=== PATIENT | male | born 1955 | race Caucasian/White ===

== ENCOUNTER 2024-11-26 12:12 | Emergency (ER) | payer OTHER, SELFPAY ==
--- NOTE | ~2024-11-26 | CT_ITS ---
EXAMINATION: CT brain wo con DATE: 11/26/2024 12:20 INDICATION: Altered mental status. Head injury. TECHNIQUE: Computed tomography (CT) of the head was performed without intravenous contrast. The dose- length product was 605.33 mGy-cm. Automated exposure control and iterative reconstruction technique were employed. COMPARISON: CT dated 11/18/2009 FINDINGS: large left hemispheric subdural hemorrhage measuring 18 mm transversely with hematocrit lev el. There is midline shift to the right measuring 12 mm with effacement of the left lateral ventricle . Basilar cisterns are patent. No depressed skull fractures. Paranasal sinuses and mastoids are pneum atized. IMPRESSION: 1. Large left hemispheric subdural hemorrhage with hematocrit level measuring 18 mm transversely with midline shift to the right measuring [address] Ernst Kay discussed with Dr. Yennifer Blanco MD at 11/26/2024 12:28 CDT. Reviewed, dictated and finalized at location A. IMPRESSION: 1. Large left hemispheric subdural hemorrhage with hematocrit level measuring 1 8 mm transversely with midline shift to the right measuring [address] Ernst Kay discussed with Dr. Yennifer Blanco MD at 11/26/2024 12:28 CDT.
--- NOTE | ~2024-11-26 | CT_ITS ---
EXAMINATION: CT cervical spine wo con DATE: 11/26/2024 12:22 INDICATION: Altered mental status status post fall. TECHNIQUE: Computed tomography (CT) of the cervical spine was performed without intravenous contrast. The dose-length product was 413 mGy-cm. Automated exposure control and iterative reconstruction tech nique were employed. COMPARISON: None FINDINGS: Large bulky are osteophytes are present at all cervical spine levels. There is near complet e obliteration of disc space at C5-6 and C6-7. There are prominent dorsal osteophytes at C3-4 and C5- 6 with bilateral neural foraminal narrowing at C5-6. There is advanced multilevel facet hypertrophy. Odontoid process is normal. Lung apices are normal. No paraspinal soft tissue abnormality.. IMPRESSION: 1. No acute abnormality of the cervical spine. 2: Severe cervical spondylosis with bulky marginal osteophytes at almost all cervical levels. Reviewed, dictated and finalized at location A. IMPRESSION: 1. No acute abnormality of the cervical spine. 2: Severe cervical spondylosis with bulky marginal osteophytes at almost all ce rvical levels.
--- NOTE | ~2024-11-26 | XR_ITS ---
CHEST RADIOGRAPH CLINICAL HISTORY: AMS . COMPARISON: 08/22/2016 TECHNIQUE: Single portable view of the chest. FINDINGS Endotracheal tube is identified with its tip projecting approximately 6 cm above the base of the mingo na for which advancement of approximately 3 cm is recommended for optimal radiographic placement. Orogastric tube extends into the left upper quadrant, presumably within the stomach. The cardiomediastinal silhouette is enlarged, an interval change. Dense opacification with air bronchograms in the left upper lobe, also an interval change. The remainder of the lungs are clear IMPRESSION: Endotracheal tube tip projects 6 cm above the base of the damion for which advancement of approximate ly 3 cm is recommended for optimal radiographic placement. Orogastric tube in good position and ready for immediate use. Interval enlargement of the cardiomediastinal silhouette, when compared with previous examination per formed in 2017. Left upper lobe infiltrate is suspected, as detailed above. Reviewed, dictated and finalized at location A. IMPRESSION: Endotracheal tube tip projects 6 cm above the base of the damion for which adva ncement of approximately 3 cm is recommended for optimal radiographic placement . Orogastric tube in good position and ready for immediate use. Interval enlargement of the cardiomediastinal silhouette, when compared with pr evious examination performed in 2017. Left upper lobe infiltrate is suspected, as detailed above.
--- NOTE | 2024-11-26 12:13 | ECG_ITS ---
Test Date: 2024-11-26 12:33:13 Measurements Intervals [place] Rate: 98 P: 0 GA: 0 QRS: -31 QRSD: 97 T: 56 QT: 383 QTc: 491 Interpretive Statements ATRIAL FIBRILLATION LEFT AXIS DEVIATION [QRS AXIS < -30] MODERATE ST DEPRESSION [0.05+ mV ST DEPRESSION] No previous ECG available for comparison Electronically Signed On 11-27-2024 18:37:56 CDT by Cuong Fernandes M.D.
--- NOTE | 2024-11-26 12:27 | PC.NURSE ---
Ginny listed in chart called x 2 without answer. VM not set up - unable to leave a message. Cornelio listed in chart had a number that was no longer in service.
[2024-11-26 12:28] VITALS: BP 172/116; PULSE 83; RESP 20; O2SAT 94
--- NOTE | 2024-11-26 12:29 | ED.FALL ---
HPI - Fall General Chief Complaint: Suspected CVA Stated Complaint: AMS Time Seen by Provider: 11/26/24 12:30 Source: patient, family, EMS and RN notes reviewed Mode of arrival: EMS Limitations: altered mental status History of Present Illness HPI Narrative: This is a 69 year old male with history of hypertension who presents for evaluation of fall and altered mental status. Daughter states he fell 3 days ago but he stubborn he woke go to the doctor. Today she found him confused and on the floor. EMS reports he is normally oriented x4 and today he is only oriented to person and age. He reports headache but no other symptoms. He is not sure why he fell. MEdication were brought with him and he is taking plavix . Related Data Allergies Allergy/AdvReac Type Severity Reaction Status Date / Time No Known Allergies Allergy Verified 08/22/16 12:59 Review of Systems Neurologic: Reports headache(s) [facility] Past Medical History Medical History (Updated 11/26/24 @ 13:08 by Yennifer Blanco MD) Hypertension Social History Social History (Updated 11/26/24 @ 13:06 by Yennifer Blanco MD) Smoking status: Unknown if ever smoked Exam Const: General: alert and confusion Other: oriented to person and age HENMT: Head: normal to inspection Face and sinus: normal facial exam Mouth: Yes Normal oral and palatal mucosa present, Yes lip normal and Yes moist mucous membranes Throat: posterior oropharynx normal Eyes: Pupils: Equal, round and reactive pupils present EOM: EOMs intact bilaterally Neck: Other: in c collar Resp: Effort & Inspection: normal respiratory effort Auscultation: clear to auscultation bilaterally Cardio: Rate: regular rate Rhythm: regular rhythm Heart sounds: Murmur heart sound present GI: Inspection: distended GI Palp: Yes Soft to palpation, No Guarding due to palpation present (GI) and No Rigid due to palpation Auscultation: normal bowel sounds Neuro: General: moves all extremities and CN's II-XI intact bilaterally Extrem: General: edema Psych: Mental Status: mental status grossly normal Affect: normal affect Attitude: cooperative Course Course Emergency Course: Patient presented with AMS found to have large SDH. Patient hypertensive. He was intubate for airway protection. Heart rate increased and blood pressure increased to 195. Patient given labetolol 20 mg IV. Patient sent to [facility] ER by Guillermo Reevaluation(s) Reevaluation #1: Patient's daughter's just arrived. I discussed with them patient critical and he is being flown to [facility] for Neurosurgery due to large intracranial hemorrhage Date: 11/26/24 Time: 13:03 Consultations Consultation #1: I spoke with Dr. Echeverria with neurosurgery and she agrees patient needs to go to ER. Understands patient will be intubated and given Kcentra. I also spoke with Dr. Conde in ER and he accepts to ER. We discussed patient to be given Kcentra. Patient will be intubated for airway protection. They request blood pressure below 160 systolic Date: 11/26/24 Time: 12:43 Vital Signs Vital signs: Vital Signs Pulse Rate 83 11/26/24 12:28 Respiratory Rate 20 11/26/24 12:28 Blood Pressure 172/116 H 11/26/24 12:28 Pulse Oximetry 94 11/26/24 12:28 Oxygen Delivery Room Air 11/26/24 12:28 Pulse Rate 85 11/26/24 13:03 Respiratory Rate 15 11/26/24 13:03 Blood Pressure 129/92 H 11/26/24 13:03 Pulse Oximetry 100 11/26/24 13:03 Oxygen Delivery Room Air 11/26/24 12:28 Transfer Transfered to: [facility] Accepting physician: Dr. Conde Procedures Intubation Intubation #1: Intubation Date: 11/26/24 Intubation Time: 12:45 Time out performed: Yes sedative: Fentanyl (50 mcg) Mg Given: 20 paralytic: Rocuronium Mg Given: 50 Laryngoscope: fiber optic video scope Tube Size (cm): 7.5 Method of Intubation: orotracheal Number of Attempts: 1 Tube Secured Depth (cm): 26 Tube Secured Location: teeth Tube Placement Confirmation: visualized tube passing through cords, equal breath sounds bilaterally and confirmation by capnometry Patient Tolerated Procedure: well MDM - Fall Differential Diagnosis Differential diagnosis: Likely other (SDH, Epidural hematom. CVA, SAH) Medical Records Attestation: I reviewed the patient's medical records. Lab Data Attestation: I reviewed the patient's lab results. 11/26/24 12:35 11/26/24 12:35 Labs: Lab Results 11/26/24 Range/Units 12:35 WBC 13.8 H (4.5-10.0) K/mm3 RBC 4.85 (4.6-6.20) M/mm3 Hgb 13.3 L (14.0-18.0) g/dL Hct 41.8 L (42.0-52.0) % MCV 86.2 (80-100) fl MCH 27.4 (26-34) pg MCHC 31.8 L (32-36) g/dl RDW 14.8 H (11.5-14.5) % Plt Count 208 (150-375) k/mm3 MPV 8.6 (7.4-10.4) fl Immature Gran % (Auto) 0.4 (0-0.5) % Neut % (Auto) 83.9 H (45.5-73.1) % Lymph % (Auto) 8.5 L (18.3-44.2) % [place] % (Auto) 6.6 (2.6-8.5) % Eos % (Auto) 0.1 (0-4.4) % Baso % (Auto) 0.5 (0.2-1.2) % Lymph # (Auto) 1.18 (0.9-3.2) K/mm3 [place] # (Auto) 0.9 H (0.1-0.6) K/mm3 Eos # (Auto) 0.0 (0-0.3) K/mm3 Baso # (Auto) 0.1 (0.0-0.1) K/mm3 Abs Immat Gran (auto) 0.06 H (0.00-0.031) K/mm3 Absolute Neuts (auto) 11.6 H (1.3-6.7) K/mm3 Absolute Nucleated RBC 0.000 (0.0-0.012) K/mm3 Nucleated RBC % 0.0 (0.0-0.2) % PT 14.5 (11.1-14.7) Seconds INR 1.1 APTT 27.0 (22.3-36.8) Seconds Sodium 139 (137-145) mmol/L Potassium 3.1 L (3.4-5.0) mmol/L Chloride 106 (98-107) mmol/L Carbon Dioxide 25 (22-30) mmol/L Anion Gap 8 (4-12) mmol/L BUN 17 (9-20) mg/dL Creatinine 0.79 (0.7-1.3) mg/dL Estim Creat Clear Calc 94 ml/min Estimated GFR > 60 (59 - ) Glucose 96 (65-110) mg/dL Calcium 9.1 (8.4-10.2) mg/dL Magnesium 2.2 (1.6-2.3) mg/dL Total Bilirubin 2.0 H (0.2-1.3) mg/dL AST 54 (17-59) U/L ALT 35 (6-50) U/L Alkaline Phosphatase 98 (38-126) U/L Total Creatine Kinase 669 H (55-170) U/L Troponin I 0.015 (0.000-0.034) ng/mL Total Protein 7.6 (6.3-8.2) g/dL Albumin 4.1 (3.5-5.1) g/dL Imaging Data Radiologist's impression: Dr. Fuentes- Large left hemispheric SDH, 12 mm midline shift ITS Impressions Head CT 11/26/24 12:25 IMPRESSION: 1. Large left hemispheric subdural hemorrhage with hematocrit level measuring 18 mm transversely with midline shift to the right measuring [address] Ernst Kay discussed with Dr. Yennifer Blanco MD at 11/26/2024 12:[address] 11/26/24 12:31 IMPRESSION: 1. No acute abnormality of the cervical spine. 2: Severe cervical spondylosis with bulky marginal osteophytes at almost all cervical levels. Chest X-Ray 11/26/24 13:09 IMPRESSION: Endotracheal tube tip projects 6 cm above the base of the damion for which advancement of approximately 3 cm is recommended for optimal radiographic placement. Orogastric tube in good position and ready for immediate use. Interval enlargement of the cardiomediastinal silhouette, when compared with previous examination performed in 2017. Left upper lobe infiltrate is suspected, as detailed above. Critical Care Time Critical Care Time Critical Care Time: Yes Total Critical Care Time: 45 Discharge Plan Discharge Clinical Impression: Acute subdural hematoma, Hypertension Patient Disposition: Acute Care Hospital Condition: Critical Patient Language: Armenian Follow-up/Referrals: Cristal,Juanito Quintero MD [Primary Care Provider] -
[2024-11-26 12:30] VITALS: BP 115/115; PULSE 87; RESP 15; O2SAT 95
[2024-11-26] MEDS: HUMAN PROTHROMBIN COMPLEX(PCC) 5,000 UNITS in PREMIXIV 0 ML 504 UNITS IV CONT (12:35)
[2024-11-26] MEDS: ONDANSETRON INJ 4 MG/2 ML VIAL (12:37)
[2024-11-26 12:41] LABS: Hematocrit 41.8 % (42.0-52.0); Hemoglobin 13.3 g/dL (14.0-18.0); Immature Granulocyte Percent A 0.4 % (0-0.5); Lymphocytes Absolute Auto 1.18 K/mm3 (0.9-3.2); Mean Corpuscular HGB Conc 31.8 g/dl (32-36); Mean Corpuscular Hemoglobin 27.4 pg (26-34); Mean Corpuscular Volume 86.2 fl (80-100); Nucleated Red Blood Cells Absolute Auto 0.000 K/mm3 (0.0-0.012); Nucleated Red Blood Cells Perc 0.0 % (0.0-0.2); Platelet Count Result 208 k/mm3 (150-375); Red Blood Count 4.85 M/mm3 (4.6-6.20); White Blood Count 13.8 K/mm3 (4.5-10.0)
[2024-11-26] MEDS: fentaNYL CITRATE INJ (*CRX) 100 MCG/2 ML VIAL (12:49)
[2024-11-26] MEDS: RAPID SEQUENCE INTUBATION KIT 1 EACH (12:50)
[2024-11-26 13:03] VITALS: BP 129/92; PULSE 85; RESP 15; O2SAT 100
[2024-11-26 13:08] LABS: Alanine Aminotransferase 35 U/L (6-50); Albumin Level 4.1 g/dL (3.5-5.1); Alkaline Phosphatase 98 U/L (38-126); Anion Gap 8 mmol/L (4-12); Aspartate Amino Transferase 54 U/L (17-59); Bilirubin,Total 2.0 mg/dL (0.2-1.3); Blood Urea Nitrogen 17 mg/dL (9-20); Calcium 9.1 mg/dL (8.4-10.2); Carbon Dioxide 25 mmol/L (22-30); Chloride 106 mmol/L (98-107); Creatine Kinase 669 U/L (55-170); Estimated CRCL calculation 94 ml/min; Estimated Glomerular Filt Rate > 60; Glucose 96 mg/dL (65-110); Magnesium 2.2 mg/dL (1.6-2.3); Potassium 3.1 mmol/L (3.4-5.0); Sodium 139 mmol/L (137-145); Total Protein 7.6 g/dL (6.3-8.2)
--- NOTE | 2024-11-26 13:09 | PC.NURSE ---
Addendum entered by Francy Jauregui RN 11/26/24 13:13: for RSI 1249- 50mcg fentanyl 1250 - 50 mary 1250 20 etomidate 1252 - 7.5 tube 25 at the lip. color change present, bilat breath sounds, NG placed. xray completed 1256 - 20 labetolol Original Note: for RSI 1249- 50mcg fentanyl 1250 - 50 mary 1250 20 etomidate 1252 - 7.5 tube 25 at the lip. colo
[2024-11-26 13:10] LABS: INR 1.1; Prothrombin Time 14.5 Seconds (11.1-14.7)
[2024-11-26 13:11] LABS: Partial Thromboplastin Time 27.0 Seconds (22.3-36.8)
--- OUTSIDE RECORDS SUMMARY | 2024-11-26 13:15 | XMS_ITS | Referral Summary ---
Author Organization [facility] Address [address] [place] [address] Care Team Providers Care Production Supervisor Off Shift Name Role Phone Juanito Bee MD Primary Care Provider [phone] Dax Cleveland NP Unavailable [phone] Ricky Reynolds MD Unavailable [phone] Allergies No known active allergies Medications clopidogreL (PLAVIX) 75 mg tablet Take 1 tablet (75 mg total) by mouth daily 03/23/20 23 Active diltiazem (TIAZAC) 240 mg 24 hr capsule Take by mouth daily 03/23/20 23 Active lisinopril-hydroCH LOROthiazide (ZESTORETIC) 20-12.5 mg per tablet Take 1 tablet by mouth 2 (two) times a day 03/23/20 23 Active rosuvastatin (CRESTOR) 40 mg tablet Take 1 tablet (40 mg total) by mouth daily 03/23/20 23 Active carvediloL (COREG) 25 mg tablet Take 1 tablet (25 mg total) by mouth 2 (two) times a day with meals 180 tablet 3 07/24/19 24 Active celecoxib (CeleBREX) 200 mg capsuleIndications :Postoperative Acute Pain Take 1 capsule (200 mg total) by mouth 2 (two) times a day 84 capsule 08/12/19 24 Active atorvastatin (LIPITOR) 20 mg tablet Take 1 tablet (20 mg total) by mouth daily Active ascorbic acid (VITAMIN C) 500 mg tablet,chewableInd ications:Vitamin deficiency prevention Take 1 tablet/chew tab (500 mg total) by mouth daily 30 tablet/chew tab 08/12/19 24 Active aspirin 81 mg enteric coated tabletIndications: Deep Vein Thrombosis Prevention Take 1 tablet (81 mg total) by mouth daily 42 tablet 08/12/19 24 Active ondansetron ODT (ZOFRAN-ODT) 4 mg disintegrating tabletIndications: nausea and vomiting Take 1 tablet (4 mg total) by mouth every 6 (six) hours as needed for nausea or vomiting 20 tablet 2 08/12/19 24 Active oxyCODONE-acetamin ophen (PERCOCET) 5-325 mg per tabletIndications: Pain Take 1-2 tablets by mouth every 4 (four) hours as needed for pain 40 tablet 08/12/19 24 Active Additional Information Patient not taking.Reported on 10/07/2023 senna-docusate (PERICOLACE) 8.6-50 mgIndications:cons tipation Take 2 tablets by mouth 2 (two) times a day 60 tablet 2 08/12/19 24 Active Active Problems Problem Noted Date Diagnosed Date Aftercare following right hip joint replacement surgery 10/06/2023 Status post total hip replacement, right 024 Pre-operative exam 07/21/2023 Coronary artery disease 07/21/2023 Hypertension 07/21/2023 Hyperlipidemia 07/21/2023 Aortic valve stenosis 07/21/2023 Resolved Problems Problem Noted Date Diagnosed Date Resolved Date Primary osteoarthritis of right hip 07/22/2023 10/06/2023 Social History Tobacco Use Types Packs/Day Years Used Date Smoking Tobacco: Some Days Cigars Smokeless Tobacco: Never Tobacco Cessation:Ready to Q uit: Not Asked; Counseling Given: Not Answered AUDIT-C Answer Date Recorded Q1: How often do you have a drink containing alcohol? 4 or more times a week 08/11/2023 Q2: How many drinks containi ng alcohol do you have on a typical day when you are drinking? 5 or 6 Q3: How often do you have si x or more drinks on one occasion? Never 08/11/2023 PHQ-2 Answer Date Recorded PHQ-2 Total Score (If total score is 3 or more points, staff should administer the PHQ-9) 0 08/11/2023 Personal Safety Answer Date Recorded Have you ever been in or are you currently in a harmful physical or emotional relationship or is someone making you feel afraid or unsafe? Denies 08/11/2023 Sex and Gender Information Value Date Recorded Sex Assigned at Not on file Legal Sex Male 7:52 PM [employer] Gender Identity Not on file Sexual Orientation Not on file Last Filed Vital Signs Vital Sign Reading Time Taken Comments Blood Pressure 154/89 10/07/2023 1:23 PM CDT Pulse 74 10/07/2023 1:23 PM CDT Temperature 36.8 C (98.3 F) 08/12/2023 10:44 AM CDT Respiratory Rate 18 08/12/2023 10:44 AM CDT Oxygen Saturation 97% 08/12/2023 10:44 AM CDT Inhaled Oxygen Concentration - - Weight 103 kg (227 lb) 10/07/2023 1:23 PM CDT Height 171.5 cm (5' 7.5) 10/07/2023 1:23 PM CDT Body Mass Index 35.03 10/07/2023 1:23 PM CDT Plan of Treatment Not on file Medical Devices Implanted Type Area Rn Sexual Assault Device Identifier Shelf Expiration Date Model / Serial / Lot [employer] [place] 58mm Sector Hip Shell Acetabular Gription Sterile Latex Free [id number] - [id number] Implanted:Qty: 1 on 08/11/2023 by Ricky Reynolds MD at [facility] Right: Hip [employer] [id number] 05/04/2033 [id number] / / [id number] [employer] [place] 58mm 36mm Hip Neutral Liner Acetabular Altrx Sterile Latex Free [id number] - [id number] Implanted:Qty: 1 on 08/11/2023 by Ricky Reynolds MD at [facility] Right: Hip [employer] [id number] 04/03/2028 [id number] / / [id number] [employer] Actis Collar Hip 4 High Offset Stem Femoral [id number] - [id number] Implanted:Qty: 1 on 08/11/2023 by Ricky Reynolds MD at [facility] Right: Hip [employer] [id number] 02/01/2033 [id number] / / [id number] [employer] Articul/Michael 36mm Cementless Hip +5mm 04/17 Taper Head Femoral Latex Free [id number] - [id number] Implanted:Qty: 1 on 08/11/2023 by Ricky Reynolds MD at [facility] Right: Hip [employer] [id number] 06/04/2028 [id number] / / [id number] Insurance [facility] [employer] Advance Directives For more information, please contact: [phone] * Full Code (Latest Code Status on File) Date Activated Date Inactivated Comments 08/11/2023 2:34 PM 08/12/2023 6:43 PM Care Teams Production Supervisor Off Shift Relationship Specialty Start Date End Date Juanito Bee MD [address] [facility] [place] [address] PCP - General Internal Medicine 04/17/23 Dax Cleveland NP [address] [facility] [place] [address] Nurse Practitioner Cardiovascular Disease 08/01/23 Ricky Reynolds MD [address] [place] [address] [address] [place] [address] Surgeon Orthopedic Surgery 08/12/23
--- OUTSIDE RECORDS SUMMARY | 2024-11-26 13:15 | XMS_ITS | Clinical Summary ---
Author Organization [facility] Address [address] [place] [address] Care Team Providers Care Hot Box Spotter Name Role Phone Juanito Bee MD Primary Care Provider [phone] Dax Cleveland NP Unavailable [phone] Ricky Reynolds MD Unavailable [phone] Allergies No known active allergies Medications clopidogreL [...] Primary osteoarthritis of right hip 07/22/2023 10/06/2023 Surgical History Surgery Date Site/Laterality Comments CELIAC ARTERY STENT 3 stents ACHILLES TENDON REPAIR Medical History Medical History Date Comments Sleep apnea Hypertension Arrhythmia Family History Medical History Relation Name Comments Heart attack Father Heart disease Father Brain Aneurysm Mother Relation Name Status Comments Father Mother Social History Tobacco Use Types Packs/Day Years [...] on file Legal Sex Male 7:52 PM P[employer]MER Gender Identity Not on file Sexual Orientation Not on file Obstetrics History Last Filed Vital Signs Vital Sign Reading [...] 10/07/2023 1:23 PM CDT Plan of Treatment Health Maintenance Due Date Last Done Comments Colon Cancer Screening-Colonoscopy 1955 Hepatitis C Screening 1955 DTaP/Tdap/Td Vaccine (1 - Tdap) 1965 Pneumococcal vaccine 65+ (1 of 2 - PCV) 1973 Zoster Vaccine (1 of 2) 2004 Abdominal Aortic Aneurysm (AAA) Screen 11/09/2019 Well Visit 65+ 11/09/2019 Covid-19 Vaccine ( season) 2024, 05/25/2020 Depression Screening 07/21/2024 07/22/2023 Fall Risk Assessment 08/11/2024 08/12/2023 Influenza Vaccine (#1) 2025 Hepatitis B Screening Completed 05/19/2019, 019 Medical Devices Implanted Type Area Car Wash Attendant Device Identifier Shelf Expiration Date Model / Serial / Lot Dep [employer] [place] 58mm Sector Hip Shell Acetabular Gription Sterile Latex Free [id number] - [id number] Implanted:Qty: 1 on 08/11/2023 by Ricky Reynolds MD at [facility] Right: Hip [employer] [id number] 05/04/2033 [id number] / / [id number] [employer] [place] 58mm 36mm Hip Neutral Liner Acetabular Altrx Sterile Latex Free [id number] - [id number] Implanted:Qty: 1 on 08/11/2023 by Ricky Reynolds MD at [facility] Right: Hip [employer] [id number] 04/03/2028 [id number] / / [id number] [employer] Actis Collar Hip 4 High Offset Stem Femoral [id number] - [id number] Implanted:Qty: 1 on 08/11/2023 by Ricky Reynolds MD at [facility] Right: Hip [employer] [id number] 02/01/2033 [id number] / / [id number] [employer] Articul/Michael 36mm Cementless Hip +5mm 04/17 Taper Head Femoral Latex Free [id number] - [id number] Implanted:Qty: 1 on 08/11/2023 by Ricky Reynolds MD at [facility] Right: Hip [employer] [id number] 06/04/2028 [id number] / / [id number] Insurance [facility] [employer] Advance Directives For more information, please contact: [phone] * Full Code (Latest Code Status on File) Date Activated Date Inactivated Comments 08/11/2023 2:34 PM 08/12/2023 6:43 PM Care Teams Hot Box Spotter Relationship Specialty Start Date End Date uJanito Bee MD [address] [facility] [place] [address] PCP - General Internal Medicine 04/17/23 Dax Cleveland NP [address] [facility] [place] [address] Nurse Practitioner Cardiovascular Disease 08/01/23 Ricky Reynolds MD [address] [place] [address] [address] [place] [address] Surgeon Orthopedic Surgery 08/12/23
[2024-11-26 13:19] LABS: Troponin I 0.015 ng/mL (0.000-0.034)
== END 2024-11-26 12:56 | disposition short-term general hospital (02) ==
LOC: ANHED 13:13
PROVIDERS: Emergency Provider General Practice; PCP Internal Medicine
DX: S06.5X0A Traumatic subdural hemorrhage without loss of consciousness, initial encounter (principal); I10 Essential (primary) hypertension; Z79.02 Long term (current) use of antithrombotics/antiplatelets; M47.812 Spondylosis without myelopathy or radiculopathy, cervical region; W19.XXXA Unspecified fall, initial encounter
CPT/HCPCS: 31500; 36415; 70450; 72125; 80053; 82550; 83735; 84484; 85025; 85610; 85730; 93005; 96374; 96375; 99291; J2405; J3010; J7168